=== PATIENT | female | born 1960 | race Caucasian/White ===

== ENCOUNTER → 2017-05-27 | Outpatient (CLI) | payer OTHER ==
[~2017-05-27] MED LIST: NEURONTIN600 MG PO; PERCOCET10 PO; SEROQUEL50 M1 PO; XANAX1 MG PO
--- NOTE | ~2017-05-27 | US98 ---
[facility] A Service of [facility] RADIOLOGY TEXT RESULTS PATIENT: NANCY WYNN LOCATION: [facility] : 58 UNIT #: [id number] AGE: [address]: DIANNE CANNON APRN SEX: F ORDER DR: [id number] [address] [address] [id number] O MR#: [id number] Acc #: [id number] NAME: NANCY WYNN : 1960 SEX: F STUDY DATE/TIME: 05/27/2017 13:36 UNIT: [facility] ROOM: STUDY DESCRIPTION: US Pelvic Non-OB Complete Attending Physician: Dianne Cannon Aprn Referring Physician: Dianne Cannon Aprn Ordering Physician: Dianne Cannon Aprn Primary Care Physician: Dianne Cannon Aprn MEDICAL IMAGING REPORT This report is preliminary unless electronic signature is present. EXAM Pelvic ultrasound INDICATION Pelvic pain for greater than a year. TECHNIQUE Li-scale, color Doppler and spectral Doppler waveform analysis was performed through the pelvis both transabdominally and transvaginally. FINDINGS Neither ovary can be identified on these images. Endometrium measures about 1.0 mm in thickness which is not unexpected for a 56-year-old woman. There is a hypoechoic structure which is either intimately associated with or arising from the fundus of the uterus measuring about 5.0 x 6.0 x 6.0 mm. No color-Doppler flow is seen within it. On patient's prior CT from December 2014, patient's right ovary was immediately adjacent to the fundus of the uterus and I wonder if perhaps this could reflect an ovarian or other adnexal cyst. No other focal uterine lesions are seen. IMPRESSION Hypoechoic structure is seen arising either immediately adjacent to or from the uterus measuring up to 5.0 x 7.0 x 6.0 mm. Clinical significance is uncertain. On the patient's prior CT from December 2014 this was in the location of the right ovary and I am uncertain if this reflects an adnexal cyst. The ovaries themselves however are not visualized on any of the images. If complaints of pelvic pain continue, contrast enhanced CT could be considered for additional evaluation. Dictated by... Meri Suárez M.D. [facility] A Service of [facility] RADIOLOGY TEXT RESULTS PATIENT: NANCY WYNN LOCATION: [facility] : 58 UNIT #: [id number] AGE: [address]: DIANNE CANNON APRN SEX: F ORDER DR: THIS IS AN ELECTRONICALLY VERIFIED REPORT Meri Suárez M.D. at 05/28/2017 5:50 PM GREG/oralia TD: 05/28/2017 12:42 JOB #: [id number] MEDICAL IMAGING REPORT Page 1 of 1
== END | disposition home or self-care (01) ==
LOC: SGUS 04-23 13:30
DX: R10.2 Pelvic and perineal pain (principal); R10.31 Right lower quadrant pain
CPT/HCPCS: 76830; 76856

== ENCOUNTER 2017-07-01 17:03 | Emergency (ER) | payer OTHER ==
--- NOTE | ~2017-07-01 | US85 ---
[facility] A Service [facility] RADIOLOGY TEXT RESULTS PATIENT: NANCY WYNN LOCATION: SED : 58 UNIT #: [id number] AGE: [address]: Nick Ott MD SEX: F ORDER DR: [id number] [place] [id number] E MR#: [id number] Acc #: [id number] NAME: NANCY WYNN : 1960 SEX: F STUDY DATE/TIME: 07/01/2017 19:24 UNIT: SED ROOM: STUDY DESCRIPTION: [facility] Attending Physician: Nick Ott M.D. Ordering Physician: Jacob Mares M.D. Primary Care Physician: Dianne Abarca Aprn MEDICAL IMAGING REPORT This report is preliminary unless electronic signature is present. EXAM Right lower extremity venous duplex 07/01/2017 HISTORY Right foot and ankle edema for 3 days worsening. Evaluate for deep vein thrombosis. TECHNIQUE Venous ultrasound examination of the right lower extremity was performed using grayscale, spectral Doppler and color flow Doppler imaging. FINDINGS The examination is negative. There is no evidence of right lower extremity deep venous thrombus from the groin to the lower calf. Visualized greater saphenous vein is also patent. IMPRESSION Negative examination. No evidence of right lower extremity deep venous thrombosis. Dictated by... Abraham Dalal M.D. THIS IS AN ELECTRONICALLY VERIFIED REPORT Abraham Dalal M.D. at 07/02/2017 4:03 PM KRT/mehrdad TD: 07/02/2017 12:10 JOB #: [id number] MEDICAL IMAGING REPORT [facility] A Service [facility] RADIOLOGY TEXT RESULTS PATIENT: NANCY WYNN LOCATION: SED : 58 UNIT #: [id number] AGE: [address]: Nick Ott MD SEX: F ORDER DR: Page 1 of 1
[2017-07-01] MEDS ORDERED: NEURONTIN600 MG PO (17:05)
[2017-07-01] MEDS ORDERED: XANAX1 MG PO (17:05)
[2017-07-01] MEDS ORDERED: PERCOCET10 PO (17:05)
[2017-07-01] MEDS ORDERED: SEROQUEL50 M1 PO (17:29)
== END 2017-07-01 20:37 | disposition home or self-care (01) ==
LOC: SED 17:03
DX: L03.115 Cellulitis of right lower limb (principal)
CPT/HCPCS: 93971; 99283